=== PATIENT | male | born 1995 | race Caucasian/White ===

== ENCOUNTER 2020-09-18 15:10 | Emergency (ER) | payer BC, SELFPAY ==
[2020-09-18 15:44] VITALS: BP 112/65; PULSE 73; RESP 14; TEMP 36.9; O2SAT 97; BMI 25.8
--- NOTE | 2020-09-18 15:57 | [facility].EDUTC ---
[facility] [place] Impression: Exposure to COVID-19 virus Disposition: Home, Self-Care Condition on Discharge: Good Instructions: Preventing the Spread of Coronavirus Discharge Instructions Additional Instructions: Drink plenty of fluids. Take tylenol for pain or fever. Return if you begin to have difficulty breathing. Follow up with your regular doctor. GO TO THE ER FOR ANY WORSENING SYMPTOMS Referrals: PCP,No [Primary Care Provider] - Time of Disposition: 15:58 Medical Decision Making - Medical Records Medical records reviewed: No: I reviewed the patient's medical records. - Db Inquiry Pt receiving controlled substance: No Vital Signs: 09/18/20 15:44 09/18/20 16:11 Temperature 98.5 F 98.5 F Temperature Source Oral Oral Pulse Rate 73 Pulse Rate [Right Brachial] 73 Respiratory Rate 14 14 Blood Pressure 112/65 Blood Pressure [Right Arm] 112/65 Blood Pressure Mean [Right Arm] 80 Blood Pressure Source [Right Arm] Automatic Cuff Blood Pressure Position [Right Arm] Supine 02 Sat by Pulse Oximetry 97 Oxygen Delivery Method Room Air Room Air Orders (Tests/Meds): ORDERS Category Date Time Status Covid-19 Nasal PCR ([facility]) Routine Lab 09/18/20 15:40 [place] [facility] [place] - General Stated complaint: covid test Time Seen by Provider: 09/18/20 15:57 Mode of Arrival: Ambulatory Source of Information: Patient HEENT Symptoms (Recalled from RN notes): No Resp Symptoms (Recalled from RN notes): No Skin Symptoms (Recalled from RN notes): No MS Symptoms (Recalled from RN notes): No Functional Status (Recalled from RN notes): na - History of Present Illness Provider Complaint: He states that he was exposed to covid-19 last week. He needs a negative test for his job. He denies any symtoms. - Worker's Comp Is this a Worker's Comp case?: No Is this an [facility] Worker's Comp?: No Is this a [facility] Worker's Comp?: No [facility] History - Hepatitis A Screen Drug use history?: No High risk sexual behaviors?: No History of sexually transmitted infection?: No Currently employed?: No Childcare worker?: No Do you have indoor plumbing?: Yes Do you have electricity?: Yes Attestation statement:: This patient has been screened for Hepatitis A risk factors. I have reviewed the patient's past medical history: Yes ROS Obtained: Yes All systems reviewed & no additional complaints - Constitutional Constitutional: Reports system reviewed and no additional complaints, except as docu - Eyes Eyes: Reports system reviewed and no additional complaints, except as docu - ENT Ears, Nose, Mouth, and Throat: Reports system reviewed and no additional complaints, except as docu - Cardiovascular Cardiovascular: Reports system reviewed and no additional complaints, except as docu Physical Exam - General General appearance: alert, in no apparent distress - Head Head exam: atraumatic, normocephalic, normal inspection - Eye Eye exam: Present: normal appearance, PERRL, EOMI - ENT ENT exam: Present: normal exam, normal oropharynx, mucous membranes moist, TM's normal bilaterally, normal external ear exam - Neck Neck exam: Present: normal inspection, full ROM, trachea midline. Absent: meningismus, lymphadenopathy - Chest Chest inspection: Present: normal inspection, symmetric chest wall rise. Absent: tenderness - Respiratory Respiratory exam: Present: normal lung sounds bilaterally. Absent: respiratory distress - Cardiovascular Cardiovascular exam: Present: regular rate, normal rhythm. Absent: JVD - Abdominal Exam Abdominal exam: Present: soft, normal bowel sounds. Absent: distention, tenderness, guarding - Extremities Exam Extremities exam: Present: normal inspection, full ROM, normal capillary refill. Absent: calf tenderness - Back Exam Back exam: Present: normal inspection. Absent: tenderness - Neurological Exam Neurological exam: Present: alert, oriented X3 - Psych
[2020-09-18 16:11] VITALS: BP 112/65; PULSE 73; RESP 14; TEMP 36.9; O2SAT 97
== END 2020-09-18 16:00 | disposition home or self-care (01) ==
PROVIDERS: Emergency Provider Nurse Practitioner Family
DX: Z20.822 Contact with and (suspected) exposure to COVID-19 (principal)
CPT/HCPCS: 99202; G0463; U0003

== ENCOUNTER 2020-11-23 15:49 | Emergency (ER) | payer BC, SELFPAY ==
[2020-11-23 16:00] VITALS: BP 103/59; PULSE 60; RESP 17; TEMP 37; O2SAT 100; BMI 25.8
[2020-11-23 16:16] VITALS: BP 103/59; PULSE 60; RESP 17; TEMP 37; O2SAT 100
--- NOTE | 2020-11-23 16:23 | HMH.EDUTC ---
[facility] [place] Clinical Impression: Viral syndrome, Bronchitis Disposition: Home, Self-Care Condition on Discharge: Good Instructions: Acute Bronchitis Additional Instructions: Drink plenty of fluids. Take tylenol or ibuprofen for pain or fever. Take the medications as directed. Follow up with your regular doctor. GO TO THE ER FOR ANY WORSENING SYMPTOMS Prescriptions: Brompheniramine/Pseudoephed/Dm [Bromfed Dm Cough Syrup] 5 ml PO Q6HP PRN #240 syrup PRN Reason: Cough Transmission Status: Received by [facility] Ondansetron [Zofran 4mg ODT] 4 mg PO Q8HP PRN #9 tab.rapdis PRN Reason: Nausea Transmission Status: Received by [facility] Azithromycin [Z-Ryder 250mg Tab*] 250 mg PO UD DOSE PK #6 tab Transmission Status: Received by [facility] Referrals: Edilia Guzman [Primary Care Provider] - Time of Disposition: 16:29 Medical Decision Making - Medical Records Medical records reviewed: No: I reviewed the patient's medical records. - Db Inquiry Pt receiving controlled substance: No Vital Signs: 11/23/20 16:00 11/23/20 16:16 Temperature 98.6 F 98.6 F Temperature Source Oral Pulse Rate 60 Pulse Rate [Left] 60 Respiratory Rate 17 17 Blood Pressure 103/59 L Blood Pressure [Right Arm] 103/59 L Blood Pressure Mean [Right Arm] 73 Blood Pressure Source Automatic Cuff 02 Sat by Pulse Oximetry 100 [facility] [place] HPI - General Stated complaint: Covid test Time Seen by Provider: 11/23/20 16:23 Mode of Arrival: Ambulatory Source of Information: Patient Limitations: No Limitations Description of Symptoms (Recalled from Triage Doc. by RN): Pt states that he has had a cough, SOB, diarrhea, headache, congestion and a runny nose since yesterday and wants to be Covid tested. HEENT Symptoms (Recalled from RN notes): Yes Resp Symptoms (Recalled from RN notes): Yes Skin Symptoms (Recalled from RN notes): No MS Symptoms (Recalled from RN notes): No Functional Status (Recalled from RN notes): wnl - History of Present Illness Provider Complaint: He states that he has had cough, congestion, nauesa and diarrhea for the past 2 days. - Related Data Previous Rx's Medication Instructions Recorded Azithromycin [Z-Ryder 250mg Tab*] 250 mg PO UD DOSE PK #6 tab 11/23/20 Brompheniramine/Pseudoephed/Dm 5 ml PO Q6HP PRN #240 syrup 11/23/20 [Bromfed Dm Cough Syrup] Ondansetron [Zofran 4mg ODT] 4 mg PO Q8HP PRN #9 tab.rapdis 11/23/20 Allergies Allergy/AdvReac Type Severity Reaction Status Date / Time No Known Allergies Allergy Verified 11/23/20 16:14 - Worker's Comp Is this a Worker's Comp case?: No [facility] History - Hepatitis A Screen Drug use history?: No High risk sexual behaviors?: No History of sexually transmitted infection?: No Currently employed?: No Childcare worker?: No Do you have indoor plumbing?: Yes Do you have electricity?: Yes Attestation statement:: This patient has been screened for Hepatitis A risk factors. I have reviewed the patient's past medical history: Yes - Social History Smoking Status: Never smoker Alcohol Intake: never Occupational Status: other ROS Obtained: Yes All systems reviewed & no additional complaints - Constitutional Constitutional: Reports system reviewed and no additional complaints, except as docu - Eyes Eyes: Reports system reviewed and no additional complaints, except as docu - ENT Ears, Nose, Mouth, and Throat: Reports system reviewed and no additional complaints, except as docu - Cardiovascular Cardiovascular: Reports system reviewed and no additional complaints, except as docu - Respiratory Respiratory: Reports system reviewed and no additional complaints, except as docu - Gastrointestinal Gastrointestingal: Reports: system reviewed and no additional complaints, except as docu Physical Exam - General General appearance: alert, in no apparent distress - Head Head exam: atrau
== END 2020-11-23 16:40 | disposition home or self-care (01) ==
PROVIDERS: Emergency Provider Nurse Practitioner Family; PCP Family Medicine
DX: B34.9 Viral infection, unspecified (principal); J20.9 Acute bronchitis, unspecified
CPT/HCPCS: 99202; G0463; U0003